=== PATIENT | male | born 1940 ===

== ENCOUNTER 2021-02-28 08:00 | Inpatient (IN) | payer OTHER ==
[~2021-02-28] VITALS: Ht 167.6 cm; Wt 79.4 kg
[2021-02-28] MEDS ORDERED: GLUMETZA500 MG PO (12:19)
[2021-02-28] MEDS ORDERED: CHILDREN'S ASPI81 MG PO (12:20)
[2021-02-28] MEDS ORDERED: ZESTORETIC 20-1 EAC1 PO (12:20)
[2021-02-28] MEDS ORDERED: SIMVASTA PO (12:20)
[2021-02-28] MEDS ORDERED: VITAMIN D-40010 MCG PO (12:21)
[2021-03-07] MEDS ORDERED: INTEGRA PLUS C1 EACH PO (08:06)
[2021-03-07] MEDS ORDERED: XARELTO10 MG PO (08:06)
[2021-03-07] MEDS ORDERED: OXYC1TAB9 PO (08:06)
[2021-03-07] MEDS ORDERED: BACTRIM DS TAB1 EACH PO (08:06)
== END 2021-03-07 16:00 | DRG 470 ==
LOC: SURH 03-05 06:45 → O/R 03-05 06:45 → SURH 03-05 07:00
PROVIDERS: ADMIT Orthopaedic Surgery Sports Medicine; ATTEND Orthopaedic Surgery Sports Medicine
PROC: 0SRC0J9 Replacement of Right Knee Joint with Synthetic Substitute, Cemented, Open Approach (ICD-10-PCS; principal; 2021-03-05 07:00)
DX: M17.11 Unilateral primary osteoarthritis, right knee (principal); E11.9 Type 2 diabetes mellitus without complications; E78.5 Hyperlipidemia, unspecified; I10 Essential (primary) hypertension